=== PATIENT | female | born 1995 | race Caucasian/White ===

== ENCOUNTER 2019-08-27 16:17 | Emergency (ER) | payer OTHER ==
[~2019-08-27] VITALS: Ht 231.1 cm; Wt 53.1 kg
== END 2019-08-27 19:23 | disposition home or self-care (01) ==
LOC: ER 16:17
DX: J35.01 Chronic tonsillitis (principal)

== ENCOUNTER 2019-08-29 22:27 | Emergency (ER) | payer OTHER ==
[~2019-08-29] VITALS: Ht 162.6 cm; Wt 60.8 kg
[2019-08-29] MEDS ORDERED: PRENATABS RX T1 EACH (23:27)
== END 2019-08-30 03:44 | disposition home or self-care (01) ==
LOC: ER 22:27
DX: O20.0 Threatened abortion (principal)

== ENCOUNTER → 2019-09-17 | Outpatient (CLI) | payer OTHER ==
[~2019-09-17] MED LIST: PRENATABS RX T1 EACH
== END | disposition home or self-care (01) ==
LOC: PRENATAL 16:00
DX: O36.80X1 Pregnancy with inconclusive fetal viability, fetus 1 (principal)

== ENCOUNTER → 2019-10-25 | Outpatient (CLI) | payer OTHER | END | disposition home or self-care (01) | LOC: PRENATAL 10:37 | DX: O43.92 Unspecified placental disorder, second trimester (principal); O35.3XX1 Maternal care for (suspected) damage to fetus from viral disease in mother, fetus 1; O28.3 Abnormal ultrasonic finding on antenatal screening of mother ==

== ENCOUNTER 2020-03-02 11:09 | Inpatient (IN) | payer OTHER ==
[~2020-03-02] VITALS: Ht 162.6 cm; Wt 81.2 kg
== END 2020-03-04 14:17 | disposition home or self-care (01) | DRG 807 ==
LOC: LDR 11:09 → OB/GYN 11:09
PROVIDERS: ADMIT Obstetrics & Gynecology
PROC: 10E0XZZ Delivery of Products of Conception, External Approach (ICD-10-PCS; principal; 2020-03-02)
PROC: 4A1HXFZ Monitoring of Products of Conception, Cardiac Rhythm, External Approach (ICD-10-PCS; 2020-03-02)
PROC: 3E033VJ Introduction of Other Hormone into Peripheral Vein, Percutaneous Approach (ICD-10-PCS; 2020-03-02)
DX: O99.824 Streptococcus B carrier state complicating childbirth (principal); Z37.0 Single live birth; O70.0 First degree perineal laceration during delivery; Z3A.37 37 weeks gestation of pregnancy